=== PATIENT | male | born 1985 | race Two or more races ===

== ENCOUNTER 2017-11-05 06:19 | Inpatient (IN) | payer OTHER ==
[~2017-11-05] VITALS: Ht 175.3 cm; Wt 88.9 kg
[2017-11-05 07:32] LABS: CALCIUM 9.6 mg/dL (8.5-10.1); CARBON DIOXIDE 20.7 mmol/L (21-32); CHLORIDE SERUM 94 mmol/L (98-107); CREATININE SERUM 1.1 mg/dL (0.7-1.3); GFR1 > 60 mL/min; GLUCOSE SERUM 183 mg/dL (74-106); POTASSIUM SERUM 4.1 mmol/L (3.5-5.1); SODIUM SERUM 132 mmol/L (136-145)
[2017-11-05 07:34] LABS: BASOPHIL % 0.5 % (0-2)
[2017-11-05 07:35] LABS: PLATELET COUNT 98 x10^3mcL (130-400); RED CELL DISTRIBUTION WIDTH 16.1 % (11.5-14.5)
[2017-11-05 07:43] LABS: ALBUMIN 4.2 g/dL (3.4-5.0); ALKALINE PHOSPHATASE 60 U/L (46-116); ALT/SGPT 63 U/L (16-63); AMYLASE 63 U/L (25-115); AST/SGOT 68 U/L (15-37); BILIRUBIN TOTAL 0.82 mg/dL (0.20-1.00); LIPASE 120 IU/L (73-393); MAGNESIUM 2.3 mg/dL (1.8-2.4); T4(THYROXINE) 5.6 ug/dL (4.7-13.3)
[2017-11-05 07:52] LABS: CHOLESTEROL 224 mg/dL (<200); HDL CHOLESTEROL 121 mg/dL (40-60); TOTAL PROTEIN, SERUM 8.3 g/dL (6.4-8.2)
[2017-11-05 08:54] LABS: UA SPECIFIC GRAVITY 1.025 (1.005-1.035); microscopic required? YES; urine erythrocyte 1+ (NEGATIVE)
[2017-11-05 09:02] LABS: AMPHETAMINE QUAL UR NONE DETECTED (NEG <=1000)
[2017-11-05 10:42] LABS: PHOSPHOROUS 2.5 mg/dL (2.5-4.9)
[2017-11-05 12:21] VITALS: BP 140/83
[2017-11-05 15:45] VITALS: Ht 175.3 cm; Wt 88.9 kg
[2017-11-05 18:10] VITALS: BP 132/72
[2017-11-05 20:41] VITALS: BP 128/81
[2017-11-06 05:14] LABS: CALCIUM 8.8 mg/dL (8.5-10.1); CARBON DIOXIDE 22.7 mmol/L (21-32); CHLORIDE SERUM 100 mmol/L (98-107); CREATININE SERUM 0.8 mg/dL (0.7-1.3); GFR1 > 60 mL/min; GLUCOSE SERUM 136 mg/dL (74-106); MAGNESIUM 2.2 mg/dL (1.8-2.4); PHOSPHOROUS 2.8 mg/dL (2.5-4.9); POTASSIUM SERUM 3.6 mmol/L (3.5-5.1); SODIUM SERUM 134 mmol/L (136-145)
[2017-11-06 05:29] LABS: BASOPHIL % 0.5 % (0-2)
[2017-11-06 05:30] LABS: PLATELET COUNT 83 x10^3mcL (130-400); RED CELL DISTRIBUTION WIDTH 16.3 % (11.5-14.5)
[2017-11-06 05:45] VITALS: BP 122/73
[2017-11-06 09:05] VITALS: BP 140/89
[2017-11-06] MEDS ORDERED: PROZ10 PO (10:59)
[2017-11-06] MEDS ORDERED: LIB25 PO (11:00)
[2017-11-06 13:14] VITALS: BP 140/89
[2017-11-06 13:31] VITALS: BP 148/92
== END 2017-11-06 17:10 | disposition home or self-care (01) | DRG 279 ==
LOC: ED 06:19 → DU 08:37 → MU 11-06 08:06
PROVIDERS: Emergency Medicine; Family Medicine
DX: K72.90 Hepatic failure, unspecified without coma (principal); N17.0 Acute kidney failure with tubular necrosis; G92 Toxic encephalopathy; E87.1 Hypo-osmolality and hyponatremia; D69.6 Thrombocytopenia, unspecified; F10.239 Alcohol dependence with withdrawal, unspecified; F41.0 Panic disorder [episodic paroxysmal anxiety]; F41.1 Generalized anxiety disorder; R74.0 Nonspecific elevation of levels of transaminase and lactic acid dehydrogenase [LDH]; F17.210 Nicotine dependence, cigarettes, uncomplicated; E66.3 Overweight; R31.9 Hematuria, unspecified; G40.89 Other seizures; Z83.3 Family history of diabetes mellitus; Z82.3 Family history of stroke; Z82.49 Family history of ischemic heart disease and other diseases of the circulatory system; Z81.1 Family history of alcohol abuse and dependence; Z68.26 Body mass index [BMI] 26.0-26.9, adult
CPT/HCPCS: 83880; G0480; J3411; J3475; J3490; J7030; Q0092

== ENCOUNTER 2018-09-22 16:55 | Emergency (ER) | payer OTHER ==
[~2018-09-22] VITALS: Ht 175.3 cm; Wt 72.6 kg
[~2018-09-22 16:55] MED LIST: LIB25 PO; PROZ10 PO
[2018-09-22 16:59] VITALS: Ht 175.3 cm; Wt 72.6 kg
[2018-09-22 17:28] LABS: BASOPHIL % 1.6 % (0-2); PLATELET COUNT 142 x10^3mcL (130-400)
[2018-09-22 17:34] LABS: RED CELL DISTRIBUTION WIDTH 19.5 % (11.5-14.5)
[2018-09-22 17:39] LABS: CALCIUM 9.1 mg/dL (8.5-10.1); CARBON DIOXIDE 23.9 mmol/L (21-32); CHLORIDE SERUM 100 mmol/L (98-107); GFR1 > 60 mL/min; GLUCOSE SERUM 161 mg/dL (74-106); POTASSIUM SERUM 4.1 mmol/L (3.5-5.1); SODIUM SERUM 137 mmol/L (136-145)
[2018-09-22 17:44] LABS: ALBUMIN 4.5 g/dL (3.4-5.0); ALKALINE PHOSPHATASE 56 U/L (46-116); ALT/SGPT 71 U/L (16-63); AST/SGOT 87 U/L (15-37); BILIRUBIN TOTAL 0.4 mg/dL (0.20-1.00); TOTAL PROTEIN, SERUM 8.7 g/dL (6.4-8.2)
[2018-09-22 20:02] VITALS: BP 155/91
== END 2018-09-22 20:02 | disposition home or self-care (01) ==
LOC: ED 16:55
PROVIDERS: Emergency Medicine
DX: F10.129 Alcohol abuse with intoxication, unspecified (principal); R56.9 Unspecified convulsions
CPT/HCPCS: G0480; J1953; J3490

== ENCOUNTER 2019-06-12 20:27 | Emergency (ER) | payer OTHER ==
[~2019-06-12] VITALS: Ht 175.3 cm; Wt 93.0 kg
[2019-06-12 20:57] VITALS: Ht 175.3 cm; Wt 93.0 kg
[2019-06-12 21:50] LABS: PLATELET COUNT 160 x10^3mcL (130-400); RED CELL DISTRIBUTION WIDTH 19.3 % (11.5-14.5)
[2019-06-12 21:57] LABS: CALCIUM 8.2 mg/dL (8.5-10.1); CARBON DIOXIDE 25.6 mmol/L (21-32); CHLORIDE SERUM 106 mmol/L (98-107); GFR1 > 60 mL/min; GLUCOSE SERUM 104 mg/dL (74-106); POTASSIUM SERUM 4.1 mmol/L (3.5-5.1); SODIUM SERUM 143 mmol/L (136-145)
[2019-06-12 22:03] LABS: ALBUMIN 3.7 g/dL (3.4-5.0); ALKALINE PHOSPHATASE 78 U/L (46-116); ALT/SGPT 90 U/L (16-63); AST/SGOT 108 U/L (15-37); BILIRUBIN TOTAL 0.3 mg/dL (0.20-1.00); LIPASE 85 IU/L (73-393)
[2019-06-12 22:58] LABS: microscopic required? NO
[2019-06-12 23:08] LABS: urine erythrocyte NEGATIVE (NEGATIVE)
[2019-06-13 01:47] VITALS: BP 135/85
== END 2019-06-13 00:47 | disposition home or self-care (01) ==
LOC: ED 20:27
PROVIDERS: Emergency Medicine
DX: R10.12 Left upper quadrant pain (principal); G40.909 Epilepsy, unspecified, not intractable, without status epilepticus; F41.9 Anxiety disorder, unspecified
CPT/HCPCS: J1165; J2270; J2405; Q9967